=== PATIENT | male | born 1955 | race African-American/Black ===

== ENCOUNTER → 2018-02-14 | Outpatient (CLI) | payer OTHER ==
[~2018-02-14] MED LIST: CLIN1CAP5 PO; IBUP-238 PO; LORT5TAB PO; PENI500T PO; PRED20 PO
[2018-02-14 08:24] LABS: HEMATOCRIT 38.2 % (39.0-51.0); HEMOGLOBIN 12.8 GM/DL (13.0-17.0); MEAN CELL VOLUME 80.5 FL (80.0-100.0); MEAN CORPUSCULAR HEMOGLOBIN 27.1 PG (27.0-34.0); MEAN CORPUSCULAR HGB CONC 33.6 % (32.0-36.0); MEAN PLATELET VOLUME 6.7 FL (7.0-11.0); PLATELET COUNT 498 TH/MM3 (150-450); RED BLOOD COUNT 4.75 MIL/MM3 (4.50-5.90); RED CELL DISTRIBUTION WIDTH 15.6 % (11.6-17.2); WHITE BLOOD COUNT 5.1 TH/MM3 (4.0-11.0)
[2018-02-14 08:46] LABS: % SATURATION IRON PROFILE 17.2 % (20-50); IRON (FE) 59 MCG/DL (65-175); TOTAL IRON BINDING CAPACITY 343 MCG/DL (250-450)
[2018-02-14 09:11] LABS: FERRITIN 14 NG/ML (26-388)
== END ==
LOC: CLAB 08:01
DX: D64.9 Anemia, unspecified (principal)
CPT/HCPCS: 36415; 82607; 82728; 83540; 83550; 85027

== ENCOUNTER → 2018-03-14 | Outpatient (CLI) | payer OTHER ==
[~2018-03-14] VITALS: Ht 185.4 cm; Wt 64.8 kg
[~2018-03-14] MED LIST changes: +CHLORHEXIDINE GLUCONATE 2 % 1 PACK (2 CLOTHS) TOPICAL PRN; -CLIN1CAP5 PO; -IBUP-238 PO; +LACTATED RINGER'S 1000 ML IV PRN; +LIDOCAINE HCL 1% PF 5 ML SYRINGE OTHER ONE; -LORT5TAB PO; +LOSA50TA PO; +METO1TAB9 PO; +METOPROLOL TARTRATE 25 MG TAB PO PRN; -PENI500T PO; +POVIDONE IODINE 5% (ANTISEPSIS KIT) 4 APPLICATIONS EACH NARE PRN; -PRED20 PO; +PROPOFOL 200 MG/20 ML AMP IV ONE; +SODIUM CHLORID 0.9% 500 ML IV PRN; +UMEC1AER INH; +VARE1PAK5 PO
[2018-03-14 16:50] VITALS: BP 169/100; PULSE 69; RESP 18; TEMP 97.8; O2SAT 100
--- NOTE | 2018-03-14 17:05 | MR ---
cc: Adryan Herman MD, Donato R MD DATE: 03/14/2018 INDICATIONS FOR PROCEDURE: Screening colonoscopy. Photographs were taken. Polypectomy was performed. Monitoring was with constant pulse oximetry, EKG, blood pressure monitor PROCEDURE NOTE: After informed consent was obtained,and the procedure, risks and benefits were explained, including risks of bleeding, sepsis, perforation, risks of anesthesia. The patient was placed in left lateral recumbent position. The video colonoscope was inserted in rectum, passed in the cecum in the usual fashion. Preparation was good. There was some residual liquid stool, suctioned as best as possible. The cecum was unremarkable. In the proximal ascending colon, a small 8 mm elongated polyp was found. This was successfully snared off and removed and retrieved. Scope was gradually withdrawn. The rest of the ascending colon, transverse colon were unremarkable. In the descending colon at about 45 cm to 40 cm, 2 colon polyps were found. These measured about 8 and 9 mm respectively. These were successfully snared off and removed. In the sigmoid colon at about 25 cm, another polyp was found. This measured about 1 cm. This was semipedunculated. This was successfully snared and retrieved. In the rectum, the scope was retroflexed. Grade 2 to early grade 3 internal hemorrhoids were noted without active bleed. The patient did have some scattered diverticular disease in the distal sigmoid and descending colon. The patient tolerated the procedure well. No immediate complications noted. IMPRESSION: 1. Diverticular disease of the sigmoid, descending region. 2. Internal hemorrhoids. 3. Colonic polyps outlined above, all of which were snared off x4; the largest was in the sigmoid region. PLAN: Followup the histopathology. Consider repeat colonoscopy between 3 and 5 years, based on pathology. We will discuss the findings with the patient. Recommend high fiber diet as well. MD CLAY Christine/ , 04:18 PM , 05:04 PM
--- NOTE | 2018-03-15 15:10 | EKG ---
Date Performed: 03/14/2018 Time Performed: 13:30:30 PTAGE: 62 years EKG: Sinus rhythm WITH SHORT UT INTERVAL POSSIBLE RIGHT VENTRICULAR CONDUCTION DELAY VOLTAGE CRITERIA FOR LVH NONSPECI FIC T-WAVE ABNORMALITY ABNORMAL ECG NO PREVIOUS TRACING DOCTOR: Edmond Jung Interpretating Date/Time 03/15/2018 15:09:18
== END ==
LOC: HSDC 12:41
PROVIDERS: ATTEND Internal Medicine Gastroenterology
DX: D12.5 Benign neoplasm of sigmoid colon (principal); K57.30 Diverticulosis of large intestine without perforation or abscess without bleeding; K64.1 Second degree hemorrhoids; K64.2 Third degree hemorrhoids; I10 Essential (primary) hypertension; Z01.810 Encounter for preprocedural cardiovascular examination
CPT/HCPCS: 00811; 45385; 88305; 93005; J7120